=== PATIENT | male | born 1955 | race Caucasian/White ===

== ENCOUNTER 2018-05-08 09:24 | Inpatient (IN) ==
--- NOTE | 2018-04-28 08:37 | Anesthesiology Consultation ---
Date of Service April 28, 2018 Assessment & Plan (1) Encounter for pre-operative examination: Chart Review Chart Review: Acceptable Risk for Surgery and Patient seen in Pre Admission Testing Teaching & Discussion Instructed NPO after midnight before surgery, except medications with 15 cc of water. Medication instructions provided according to the PAT guidelines. History Surgery Operation Date: 05/08/18 12:45 Proposed Procedures p L5-S1 Decompression and Fusion - Watson Ortiz, Height/Weight Height: 5 ft 11 in Weight: 113 kg Allergies Allergy/AdvReac Type Severity Reaction Status Date / Time Sulfa (Sulfonamide Allergy Intermediate HIVES Verified 04/26/18 12:12 Antibiotics) boullion cubes Allergy Hives Uncoded 04/28/18 08:47 Medications Home Medications Medication Instructions Recorded Confirmed Last Taken Vitamin D 1,000 unit PO DAILY 04/26/18 04/26/18 Unknown albuterol sulfate 1 inh INHALATION QID PRN 04/26/18 04/26/18 Unknown amlodipine 10 mg PO QAM 04/26/18 04/26/18 Unknown ascorbic acid (vitamin C) [Vitamin 500 mg PO DAILY 04/26/18 04/26/18 Unknown C] aspirin [Aspir-Low] 81 mg PO HS 04/26/18 04/26/18 Unknown azelastine 1 spray INTRANASAL Q12H PRN 04/26/18 04/26/18 Unknown dicyclomine 10 mg PO DAILY PRN 04/26/18 04/26/18 Unknown gabapentin 2 tab PO TID 04/26/18 04/26/18 Unknown hydrochlorothiazide 25 mg PO QAM 04/26/18 04/26/18 Unknown lisinopril 40 mg PO QAM 04/26/18 04/26/18 Unknown multivitamin 1 tab PO HS 04/26/18 04/26/18 Unknown omeprazole 20 mg PO QAM 04/26/18 04/26/18 Unknown rosuvastatin [Crestor] 5 mg PO HS 04/26/18 04/26/18 Unknown tramadol 50 mg PO Q8H PRN 04/26/18 04/26/18 Unknown Past Medical History Medical History Asthma ASTHMATIC BRONCHITIS. LAST FLARE IN 2017. ONLY USES INHALER DURING COUGHING FLARES. Cardiac murmur None appreciated on exam. 2103 echo showed only trace MR/TR. Degenerative disc disease GERD (gastroesophageal reflux disease) Gallstones Hyperlipidemia Hypertension Osteoarthritis Peripheral neuropathy BLE Sleep apnea NO DEVICE, DID NOT TOLERATE Past Family History Family History Mother Family history of diabetes mellitus Past Surgical History Surgical History History of amputation LEFT HAND TIP INDEX FINGER History of colonoscopy History of discectomy l4-l5 History of endoscopic sinus surgery "FOR SLEEP APNEA" History of esophagogastroduodenoscopy (EGD) History of facial surgery Mechanical fall, teeth impacted into maxilla. History of tonsillectomy Past Anesthesia History No Hx of Anesthesia Complications and No Family Hx of Anesthesia Complications 2014 L4-L5 discectomy: no isssues per anesthesia record. History of PONV No Motion Sickness Screening History of Motion Sickness: No Social History Smoking Status: Former smoker Smoking cigarettes per day: QUIT 2002 Do You Dip or Chew Tobacco: No Hx Alcohol Use: No Alcohol Intake Frequency Comment: QUIT 2003 Hx Substance Use: No substance use type: does not use Exercise / Class Metabolic Activity II 4-5 Yardwork/Stairs/Walk up hill (currently limited by back pain/ radiculopathy) Review of Systems Pt denies any recent chest pain, shortness of breath, palpitations, cough, fever or URI. Physical Exam Vital Signs BP: 134/80 P: 69bpm SPO2: 96% RA T: 98.6 F R: 16 ENMT Mouth: + dentures (upper partial); no chipped teeth and no loose teeth Thyromental Distance: < 3.5 Finger Breadths (3) Mallampati Class: II Neck normal visual inspection; neck extension not limited Respiratory normal respiratory effort Auscultation: lungs clear to auscultation bilaterally Cardiovascular Rate/Rhythm: regular rate and regular rhythm Heart Sounds: no murmur Vessels: no carotid bruit Extremities: no edema Testing Electrocardiogram Date: 04/28/18 Findings: + NSR @ (64) Chest X-Ray Date: 04/28/18 Findings: + NAD Echocardiogram Date: 06/16/13 EF: 65-70% The study was technically difficult, but visualization was adequate with the administration of Definity ultrasound contrast. The left ventricle is normal in size. There is normal left ventricular wall thickness. Left ventricular systolic function is normal. The left ventricular wall motion is normal. Grade I diastolic dysfunction, (abnormal relaxation pattern). There is no significant valvular disease. Laboratory Results 04/28/18 09:09 04/28/18 09:09 Blood Type O Positive 04/28/18 09:09 Antibody Screen NEGATIVE 04/28/18 09:09 PT 9.9 Seconds (9.0-12.0) 04/28/18 09:09 INR 1.0 (0.9-1.1) 04/28/18 09:09 APTT 26.6 Seconds (21.0-31.0) 04/28/18 09:09 Urine Color Yellow 04/28/18 09:09 Urine Appearance Clear (Clear) 04/28/18 09:09 Urine pH 6.5 (4.5-7.5) 04/28/18 09:09 Ur Specific [place] 1.016 (1.000-1.030) 04/28/18 09:09 Urine Protein Negative (Negative) 04/28/18 09:09 Urine Glucose (UA) Negative (Negative) 04/28/18 09:09 Urine Ketones Negative (Negative) 04/28/18 09:09 Urine Nitrite Negative (Negative) 04/28/18 09:09 Ur Leukocyte Esterase Negative (Negative) 04/28/18 09:09
--- NOTE | 2018-04-28 08:41 | PAT Medication Instructions ---
Medication Instructions Date of Service April 28, 2018 Home Medications Vitamin D 1,000 unit PO DAILY albuterol sulfate 1 inh INHALATION QID PRN amlodipine 10 mg PO QAM ascorbic acid (vitamin C) 500 mg PO DAILY aspirin [Aspir-Low] 81 mg PO HS azelastine 1 spray INTRANASAL Q12H PRN dicyclomine 10 mg PO DAILY PRN gabapentin 2 tab PO TID hydrochlorothiazide 25 mg PO QAM lisinopril 40 mg PO QAM multivitamin 1 tab PO HS omeprazole 20 mg PO QAM rosuvastatin [Crestor] 5 mg PO HS tramadol 50 mg PO Q8H PRN DO NOT take the morning of surgery Vitamin D 1,000 unit PO DAILY ascorbic acid (vitamin C) 500 mg PO DAILY dicyclomine 10 mg PO DAILY PRN hydrochlorothiazide 25 mg PO QAM lisinopril 40 mg PO QAM Take morning of surgery With a small sip of water, OTHERWISE NOTHING TO EAT OR DRINK AFTER MIDNIGHT: albuterol sulfate 1 inh INHALATION QID PRN (if needed, and bring with you to the hospital) amlodipine 10 mg PO QAM azelastine 1 spray INTRANASAL Q12H PRN (if needed) gabapentin 2 tab PO TID omeprazole 20 mg PO QAM tramadol 50 mg PO Q8H PRN (if needed, may be taken up to four hours before surgery) Take evening before surgery aspirin [Aspir-Low] 81 mg PO HS albuterol sulfate 1 inh INHALATION QID PRN (if needed) azelastine 1 spray INTRANASAL Q12H PRN (if needed) dicyclomine 10 mg PO DAILY PRN (if needed) gabapentin 2 tab PO TID multivitamin 1 tab PO HS rosuvastatin [Crestor] 5 mg PO HS tramadol 50 mg PO Q8H PRN (if needed) Other Notes If you have any questions please call us at [phone] or [phone] or [phone] or [phone]
--- NOTE | 2018-04-28 09:46 | XRay Report ---
TWO VIEW CHEST CLINICAL HISTORY: Preoperative examination. FINDINGS: PA and lateral chest radiographs are compared to study dated 06/16/2013. The cardiomediastina l silhouette is unremarkable. The lungs and pleural spaces are clear. There is no pneumothorax. The bony thorax appears intact. IMPRESSION: No active disease in the chest. Electronically signed by: Karthik Kennedy M.D. 04/28/2018 9:45 AM
[2018-04-28 10:14] LABS: Basophils # (auto) 0.04 K/uL (0-0.2); Basophils % (auto) 0.7 %; Eosinophils % (auto) 1.8 %; Hematocrit (blood only) 43.6 % (42-52); Hemoglobin 14.9 g/dL (14.0-18.0); Immature Granulocytes # (auto) 0.02 K/uL (0.00-0.02); Immature Granulocytes % (auto) 0.4 %; Lymphocytes # (auto) 2.05 K/uL (1.2-3.4); Lymphocytes % (auto) 36.2 %; Mean Corpuscular Hgb Conc 34.2 g/dL (32-36); Mean Corpuscular Volume 83.8 fL (80-100); Mean Platelet Volume 9.5 fL (7.4-10.4); Monocytes # (auto) 0.52 K/uL (0.11-0.59); Monocytes % (auto) 9.2 %; Neutrophils # (auto) 2.93 K/uL (1.4-6.5); Neutrophils % (auto) 51.7 %; Platelet Count 260 K/uL (130-400); RDW Coefficient of Variation 13.1 % (11.5-14.5); RDW Standard Deviation 39.5 fL (36.4-46.3); White Blood Count 5.66 K/uL (4.8-10.8)
[2018-04-28 10:22] LABS: Appearance Urine Clear (Clear); Bilirubin Urine Negative (Negative); Color Urine Yellow; Glucose Urine UA Negative (Negative); Ketones Urine Negative (Negative); Leukocyte Esterase Urine Negative (Negative); Nitrite Urine Negative (Negative); Protein Urine Negative (Negative); Specific Gravity Urine 1.016 (1.000-1.030); Urobilinogen Urine Negative (Negative); pH Urine 6.5 (4.5-7.5)
[2018-04-28 10:23] LABS: BUN Creatinine Ratio 18.4 (10-20); Calcium 9.6 mg/dl (8.5-10.1); Creatinine Clr Calc Pharmacy 103.5 ml/min; Est GFR (African American) 97.9; Est GFR (Non-African American) 84.5; Potassium 4.3 mmol/L (3.5-5.1)
[2018-04-28 10:29] LABS: Partial Thromboplastin Time 26.6 Seconds (21.0-31.0); Prothrombin Time 9.9 Seconds (9.0-12.0)
[~2018-05-08 09:24] MED LIST: ACETAMINOPHEN 500 MG TAB PO SCH; CEFAZOLIN 2000MG 2,000 MG/15 ML SYR IV SCH; CeleBREX 200 MG CAP PO SCH; GABAPENTIN 300 MG x 2 PO SCH; LR 15ML/HR IV SCH
[2018-05-08] MEDS ORDERED: HYDROmorphone INJ 2 MG/ML SYR/VIAL ONE (09:39)
[2018-05-08] MEDS ORDERED: MIDAZOLAM HCL 1 MG/ML 2ML VIAL ONE (09:39)
[2018-05-08] MEDS ORDERED: fentaNYL citrate 100 MCG/2 ML VIAL ONE (09:39)
[2018-05-08] MEDS ORDERED: ONDANSETRON INJ 2 MG/ML 2 ML VIAL ONE (10:37)
[2018-05-08] MEDS ORDERED: LIDOCAINE HCL 2% 2 ML VIAL/AMP(20MG/ML) INFIL ONE (10:37)
[2018-05-08] MEDS ORDERED: DEXAMETHASONE SOD INJ 4 MG/ML VIAL ONE (10:37)
[2018-05-08] MEDS ORDERED: GLYCOPYRROLATE 0.2 MG/ML VIAL ONE (10:37)
[2018-05-08] MEDS ORDERED: ROCURONIUM BROMIDE 10 MG/ML 5 ML VIAL ONE (10:37)
[2018-05-08] MEDS ORDERED: NEOSTIGMINE METHYLSULFATE 1 MG/ML 10ML VIAL ONE (10:37)
[2018-05-08] MEDS ORDERED: PROPOFOL IV EMULSION 10 MG/ML 20 ML VIAL IV ONE (10:37)
[2018-05-08] MEDS ORDERED: ONDANSETRON INJ 2 MG/ML 2 ML VIAL IV PRN ×2 (10:59→15:31)
[2018-05-08] MEDS ORDERED: ePHEDrine sulfate 50 MG/ML AMP IV PRN (10:59)
[2018-05-08] MEDS ORDERED: ATROPINE SULFATE 0.1 MG/ML 5ML SYR IV PRN (10:59)
[2018-05-08] MEDS ORDERED: HYDROmorphone INJ 2 MG/ML SYR/VIAL IV PRN (10:59)
[2018-05-08] MEDS ORDERED: PROMETHAZINE HCL 6.25 MG in SODIUM CHLORIDE 0.9% 50 ML IV PRN (10:59)
[2018-05-08] MEDS ORDERED: ESMOLOL HCL INJ 10 MG/ML 10ML VIAL IV ONE (11:46)
--- NOTE | 2018-05-08 11:50 | History & Physical Bridge Note ---
Date of Service May 08, 2018 History & Physical Bridge Note I have examined the patient, reviewed the History & Physical and in the interval since the performance of the History & Physical I have noted the following changes of clinical significance: no changes noted
--- NOTE | 2018-05-08 11:51 | History & Physical Report ---
Date of Service May 08, 2018 Assessment & Plan (1) Neurogenic claudication due to lumbar spinal stenosis: Decompression and fusion L5-S1 Present on Admission?: Yes History of Present Illness Chief Complaint: Back and leg pain Primary Care Provider: Denzel Loomis This is a 62-year-old male that presents with chronic persistent back and leg pain. After failing extensive course of nonoperative care is here for surgical intervention. Allergies Allergy/AdvReac Type Severity Reaction Status Date / Time Sulfa (Sulfonamide Allergy Intermediate HIVES Verified 05/08/18 09:48 Antibiotics) boullion cubes Allergy Hives Uncoded 05/08/18 09:48 Home Medications Home Medications Medication Instructions Recorded Confirmed Type Vitamin D 1,000 unit PO DAILY 04/26/18 05/08/18 History albuterol sulfate 1 inh INHALATION QID PRN 04/26/18 05/08/18 History amlodipine 10 mg PO QAM 04/26/18 05/08/18 History ascorbic acid (vitamin C) [Vitamin 500 mg PO DAILY 04/26/18 05/08/18 History C] aspirin [Aspir-Low] 81 mg PO HS 04/26/18 05/08/18 History azelastine 1 spray INTRANASAL Q12H PRN 04/26/18 05/08/18 History dicyclomine 10 mg PO DAILY PRN 04/26/18 05/08/18 History gabapentin 2 tab PO TID 04/26/18 05/08/18 History hydrochlorothiazide 25 mg PO QAM 04/26/18 05/08/18 History lisinopril 40 mg PO QAM 04/26/18 05/08/18 History multivitamin 1 tab PO HS 04/26/18 05/08/18 History omeprazole 20 mg PO QAM 04/26/18 05/08/18 History rosuvastatin [Crestor] 5 mg PO HS 04/26/18 05/08/18 History tramadol 50 mg PO Q8H PRN 04/26/18 05/08/18 History Past Med/Surg History Medical History Asthma ASTHMATIC BRONCHITIS. LAST FLARE IN 2017. ONLY USES INHALER DURING COUGHING FLARES. Cardiac murmur None appreciated on exam. 2103 echo showed only trace MR/TR. Degenerative disc disease GERD (gastroesophageal reflux disease) Gallstones Hyperlipidemia Hypertension Osteoarthritis Peripheral neuropathy BLE Sleep apnea NO DEVICE, DID NOT TOLERATE Surgical History History of amputation LEFT HAND TIP INDEX FINGER History of colonoscopy History of discectomy l4-l5 History of endoscopic sinus surgery "FOR SLEEP APNEA" History of esophagogastroduodenoscopy (EGD) History of facial surgery Mechanical fall, teeth impacted into maxilla. History of tonsillectomy Family History Mother Family history of diabetes mellitus Social History Current Living Situation: Spouse Other Information That Helps Us Care for You: No Feels Safe at Home: Yes Safety Concerns: Feels Safe At This Time Smoking Status: Former smoker Cigarettes per Day: QUIT 2003 Do You Dip or Chew Tobacco: No Hx Alcohol Use: No Hx Substance Use: No Beliefs That Will Affect Care: None Preferred Language: [place] Communication Ability: Effective Nursery Teacher Required: No Physical Exam 2 Vital Signs (Past 24 Hours): Last Vital Signs Temp 37.2 C 05/08/18 09:56 Pulse 76 05/08/18 09:56 Resp 18 05/08/18 09:56 BP 168/79 H 05/08/18 09:56 Pulse Ox 95 05/08/18 09:56 Results & Data Medications Administered Acetaminophen (Tylenol) 1,000 mg PO PREOP SHANI Stop: 05/08/18 18:00 Last Admin: 05/08/18 10:29 Dose: 1,000 mg Celecoxib (Celebrex) 200 mg PO PREOP SHANI Stop: 05/08/18 18:00 Last Admin: 05/08/18 10:29 Dose: 200 mg Gabapentin (Neurontin) 600 mg PO PREOP SHANI Stop: 05/08/18 18:00 Last Admin: 05/08/18 10:33 Dose: Not Given Lactated Ringer's (Lr) 1,000 mls @ 15 mls/hr IV .Q24H SHANI Stop: 05/09/18 05:59 Last Admin: 05/08/18 10:18 Dose: 15 mls/hr
[2018-05-08] MEDS ORDERED: BUPIVACAINE/EPINEPHRINE 0.5% MPF 1:200,000 30 ML VIAL ONE (11:56)
[2018-05-08] MEDS ORDERED: BACITRACIN INJ 50,000 UNIT VIAL ONE (11:56)
[2018-05-08] MEDS ORDERED: FLOSEAL HEMOSTATIC MATRIX 10ML TOP ONE (13:31)
--- NOTE | 2018-05-08 14:08 | Operative Report ---
Post Operative Report Date of Surgery May 08, 2018 Pre & Post Diagnosis Operation Date: 05/08/18 11:25 Pre-Op Diagnosis: Lumbar spinal stenosis with radiculopathy Post-Op Diagnosis: Same Procedure Operation Date: 05/08/18 11:25 Actual Procedures #1 revision decompression medial facetectomy foraminotomy L5-S1. 2 posterior spinal fusion L5-S1. #3 please posterior his mentation L5-S1. #4 interbody fusion L5-S1. #5 placement of titanium 11 x 26 mm cage L5-S1. #6 placement of local autograft in the posterior gutters per #7 placement infuse collagen sponge , mass graft and posterior gutters and ostomy up in interbody space. Surgeon Watson Ortiz, Director Community Organization None Estimated Blood Loss 100 Findings Consistent with Post-Op Diagnosis Specimens None Description of Procedure Patient was met with preoperatively case discussed all questions addressed. After informed consent obtained patient was taken to the operative suite underwent intubation and placed in a prone position the Emery table on top of the Johnny frame. All bony prominences well-padded eyes inspected to ensure no external pressure placed upon this point the lumbar spine was prepped and draped in normal sterile fashion. Sharp dissection with the assistance of Bovie cautery was performed down to and exposing the remaining lamina and transverse process of L5 and sacral ala bilaterally. From a caudal to cephalad fashion revision complete laminectomy of L5 was performed including medial facetectomies and foraminotomies addressing severe stenosis. Pedicle screws were then placed in L5 and S1 levels bilaterally with assistance of fluoroscopy the process lokesh placed. The transforaminal portion right complete discectomy was performed in place coated to subcortical bleeding bone and a 11 x 26 mm titanium cage filled with ostium bone graft tapped in position. Rods were then locked in final position bilaterally. The transverse process of L5 and sacral ala bur to subcortical bleeding bone. Infuse collagen sponge mass graft local autograft placed in the posterior gutters. 15 round ROBIN drain inserted. Incision then closed with 1 Vicryl fascia 2-0 Vicryl subtenons seen for Monocryl for Fransen closure Steri-Strip sterile dressings placed. Patient will continue to PACU stable condition. I attest to the content of the Intraoperative Record and any orders documented therein. Any exceptions are noted below.
--- NOTE | 2018-05-08 14:17 | Fluoroscopy Report ---
FL lumbar spine 2-3V CLINICAL HISTORY: L5-S1 DECOMPRESSION AND FUSION COMPARISON STUDY: Lumbar spine MRI June 15, 2013. FLUOROSCOPY TIME: 19 seconds. FLUOROSCOPIC IMAGES: 2 FINDINGS: These images demonstrate an L5-S1 discectomy with interbody spacer placement. There is a po sterior decompression with bilateral pedicle screws at the L5 and S1 levels. IMPRESSION: Fluoroscopic images demonstrating an L5-S1 discectomy and bilateral pedicle screw fusion /decompression. Electronically signed by: Tc Swanson M.D. 05/08/2018 2:15 PM
[2018-05-08] MEDS: fentaNYL citrate 100 MCG/2 ML VIAL IV PRN ×4 (14:22→14:37)
--- NOTE | 2018-05-08 14:25 | Anesthesiology Progress Note ---
Date of Service May 08, 2018 Anesthesia Post Procedure Vital Signs Vital Signs: Temp Pulse Resp BP Pulse Ox 05/08/18 09:56 37.2 C 76 18 168/79 H 95 Pain Intensity Right Lower Back: Pain Intensity: 1 Notes Mental Status: alert / awake / arousable Patient Amnestic to Procedure: Yes Nausea / Vomiting: adequately controlled Pain: adequately controlled Airway Patency, RR, SpO2: stable & adequate BP & HR: stable & adequate Hydration State: stable & adequate Anesthetic Complications: no major complications apparent
[2018-05-08] MEDS ORDERED: DO NOT ADMINISTER PNEUMOCOCCAL VACCINE PRN (15:31)
[2018-05-08] MEDS ORDERED: HYDROmorphone INJ 1 MG/ML SYRINGE IV PRN (15:31)
[2018-05-08] MEDS ORDERED: SOD PHOSPHATE/SOD BIPHOSPHATE ENEMA 132 ML BTL PR PRN (15:31)
[2018-05-08] MEDS ORDERED: ALUMINUM/MAGNESIUM SUSP 30 ML UDC PO PRN (15:31)
[2018-05-08] MEDS ORDERED: ACETAMINOPHEN 500 MG TAB PO PRN (15:31)
[2018-05-08] MEDS ORDERED: FAMOTIDINE 20 MG TAB PO PRN (15:31)
[2018-05-08] MEDS ORDERED: ACETAMINOPHEN 1,000 MG/100 ML VIAL IV PRN (15:31)
[2018-05-08] MEDS ORDERED: DO NOT ADMINISTER FLU VACCINE PRN (15:31)
[2018-05-08] MEDS ORDERED: LORazepam 0.5 MG/1 ML VIAL IV PRN (15:31)
[2018-05-08] MEDS ORDERED: PROMETHAZINE HCL 12.5 MG in SODIUM CHLORIDE 0.9% 50 ML IV PRN (15:31)
[2018-05-08] MEDS ORDERED: BISACODYL 10 MG SUPP PR PRN (15:31)
[2018-05-08] MEDS ORDERED: OXYCODONE HCL IR 5 MG TAB (IMMEDIATE RELEASE) PO PRN (15:31)
[2018-05-08] MEDS ORDERED: MAGNESIUM HYDROXIDE SUSP 30 ML UDC PO PRN (15:31)
[2018-05-08] MEDS ORDERED: TRAMADOL HCL 50 MG TABLET PO PRN (15:31)
[2018-05-08] MEDS ORDERED: LORazepam 0.5 MG TAB PO PRN (15:31)
[2018-05-08] MEDS ORDERED: METOCLOPRAMIDE HCL INJ 5 MG/ML 2 ML VIAL IV PRN (15:31)
[2018-05-08] MEDS ORDERED: ONDANSETRON 4 MG TAB PO PRN (16:00)
[2018-05-08] MEDS ORDERED: DICYCLOMINE HCL 10 MG CAP PO PRN (16:00)
[2018-05-08] MEDS ORDERED: ALBUTEROL HFA 8 GM INHALER INH PRN (16:00)
[2018-05-08] MEDS: LACTATED RINGER'S 1,000 ML IV SCH ×2 (16:23→22:35)
[2018-05-08] MEDS: KETOROLAC 30 MG/ML VIAL IV SCH ×2 (16:29→20:47)
[2018-05-08] MEDS: ROSUVASTATIN CALCIUM 5 MG TAB PO SCH (20:47)
[2018-05-08] MEDS: CEFAZOLIN 2000MG 2,000 MG/15 ML SYR IV SCH (20:47)
[2018-05-08] MEDS: DOCUSATE SODIUM/SENNA 50/8.6MG TAB PO SCH (20:47)
[2018-05-08] MEDS: ASPIRIN 81 MG ECTAB PO SCH (20:47)
[2018-05-08] MEDS: MULTIVITAMIN TAB PO SCH (20:47)
[2018-05-08] MEDS: GABAPENTIN 600 MG TAB PO SCH (20:47)
[2018-05-08] MEDS: TRAMADOL HCL 50 MG TABLET PO PRN (22:38)
[2018-05-09] MEDS: CEFAZOLIN 2000MG 2,000 MG/15 ML SYR IV SCH (03:49)
[2018-05-09] MEDS: KETOROLAC 30 MG/ML VIAL IV SCH ×2 (03:49→09:57)
[2018-05-09] MEDS: POLYETHYLENE (MIRALAX) 17 GM PACK PO SCH ×4 (05:24→23:18)
[2018-05-09] MEDS: LACTATED RINGER'S 1,000 ML IV SCH (06:57)
[2018-05-09 07:25] LABS: Basophils # (auto) 0.01 K/uL (0-0.2); Basophils % (auto) 0.1 %; Hematocrit (blood only) 37.4 % (42-52); Hemoglobin 12.6 g/dL (14.0-18.0); Immature Granulocytes # (auto) 0.04 K/uL (0.00-0.02); Immature Granulocytes % (auto) 0.4 %; Lymphocytes # (auto) 1.16 K/uL (1.2-3.4); Lymphocytes % (auto) 10.3 %; Mean Corpuscular Hgb Conc 33.7 g/dL (32-36); Mean Corpuscular Volume 83.3 fL (80-100); Mean Platelet Volume 9.7 fL (7.4-10.4); Monocytes # (auto) 0.72 K/uL (0.11-0.59); Monocytes % (auto) 6.4 %; Neutrophils # (auto) 9.36 K/uL (1.4-6.5); Neutrophils % (auto) 82.8 %; Platelet Count 241 K/uL (130-400); RDW Standard Deviation 39.2 fL (36.4-46.3); Red Blood Count 4.49 M/uL (4.7-6.1); White Blood Count 11.29 K/uL (4.8-10.8)
[2018-05-09 07:59] LABS: BUN Creatinine Ratio 16.8 (10-20); Calcium 8.6 mg/dl (8.5-10.1); Creatinine Clr Calc Pharmacy 97.5 ml/min; Est GFR (African American) 92.2; Est GFR (Non-African American) 79.5; Potassium 4.2 mmol/L (3.5-5.1)
[2018-05-09] MEDS: LISINOPRIL 40 MG TAB PO SCH (08:18)
[2018-05-09] MEDS: GABAPENTIN 600 MG TAB PO SCH ×3 (08:18→20:31)
[2018-05-09] MEDS: PANTOprazole 40 MG TAB PO SCH (08:18)
[2018-05-09] MEDS: CHOLECALCIFEROL 1,000 UNITS TAB PO SCH (08:18)
[2018-05-09] MEDS: AMLODIPINE BESYLATE 5 MG TAB PO SCH (08:19)
[2018-05-09] MEDS: ASCORBIC ACID 500 MG TAB PO SCH (08:19)
[2018-05-09] MEDS: hydroCHLOROthiazide 25 MG TAB PO SCH (08:19)
--- NOTE | 2018-05-09 12:08 | Orthopedic Progress Note ---
Date of Service May 09, 2018 Assessment & Plan (1) Neurogenic claudication due to lumbar spinal stenosis: Continue physical therapy today monitor his ROBIN output anticipate discharge home tomorrow the next day. Present on Admission?: Yes Physical Exam 2 Vital Signs (Past 24 Hours): Last Vital Signs Temp 36.7 C 05/09/18 11:08 Pulse 73 05/09/18 11:08 Resp 18 05/09/18 11:08 BP 131/65 05/09/18 11:08 Pulse Ox 95 05/09/18 11:08 Physical Exam: Patient is good strength testing appears comfortable.
[2018-05-09] MEDS: ASPIRIN 81 MG ECTAB PO SCH (20:31)
[2018-05-09] MEDS: DOCUSATE SODIUM/SENNA 50/8.6MG TAB PO SCH (20:31)
[2018-05-09] MEDS: MULTIVITAMIN TAB PO SCH (20:31)
[2018-05-09] MEDS: ROSUVASTATIN CALCIUM 5 MG TAB PO SCH (20:31)
[2018-05-10] MEDS: POLYETHYLENE (MIRALAX) 17 GM PACK PO SCH ×2 (05:53→09:50)
[2018-05-10] MEDS: TRAMADOL HCL 50 MG TABLET PO PRN (05:54)
[2018-05-10] MEDS: GABAPENTIN 600 MG TAB PO SCH ×2 (05:54→13:43)
[2018-05-10] MEDS: LISINOPRIL 40 MG TAB PO SCH (07:26)
[2018-05-10] MEDS: PANTOprazole 40 MG TAB PO SCH (07:26)
[2018-05-10] MEDS: hydroCHLOROthiazide 25 MG TAB PO SCH (07:27)
[2018-05-10] MEDS: CHOLECALCIFEROL 1,000 UNITS TAB PO SCH (07:27)
[2018-05-10] MEDS: ASCORBIC ACID 500 MG TAB PO SCH (07:28)
[2018-05-10] MEDS: AMLODIPINE BESYLATE 5 MG TAB PO SCH (07:28)
--- NOTE | 2018-05-10 08:21 | Anesthesiology Progress Note ---
Date of Service May 10, 2018 Anesthesia Post Procedure Vital Signs Vital Signs: Temp Pulse Pulse Pulse Resp BP Pulse Ox 05/10/18 08:06 37.0 C 76 16 132/82 98 05/10/18 06:29 36.7 C 76 16 126/76 98 05/09/18 22:55 36.9 C 66 18 109/66 93 05/09/18 15:12 36.6 C 68 18 118/70 97 05/09/18 11:08 36.7 C 73 18 131/65 95 05/09/18 10:43 96 Pain Intensity Right Lower Back: Pain Intensity: 1 Back: Pain Intensity: 3 Notes Mental Status: alert / awake / arousable and participated in evaluation Patient Amnestic to Procedure: Yes Nausea / Vomiting: adequately controlled Pain: adequately controlled Airway Patency, RR, SpO2: stable & adequate BP & HR: stable & adequate Hydration State: stable & adequate Anesthetic Complications: no major complications apparent and Pt Satisfied with anesthetic care
--- NOTE | 2018-05-10 13:01 | Discharge Summary ---
Date of Service May 10, 2018 Admission HPI Per Admitting Provider This is a 62-year-old male that presents with chronic persistent back and leg pain. After failing extensive course of nonoperative care is here for surgical intervention. Principal Diagnosis Spinal stenosis with neurogenic claudication Discharge Data Allergies Allergy/AdvReac Type Severity Reaction Status Date / Time Sulfa (Sulfonamide Allergy Intermediate HIVES Verified 05/08/18 09:48 Antibiotics) boullion cubes Allergy Hives Uncoded 05/08/18 09:48 Consultations 05/08/18 15:31 Consult Case Management - Discharge Planning Routine Procedures Performed Operation Date: 05/08/18 11:25 Actual Procedures p L5-S1 Decompression and Fusion(Not Applicable) - Watson Ortiz DO Ordered Studies 05/08/18 11:25 FL fluoroscopy >1hr Routine [place] lumbar spine 2-3V Routine Hospital Course (1) Neurogenic claudication due to lumbar spinal stenosis: Patient underwent lumbar decompression fusion tolerated as well as taken to the orthopedic floor postoperative. Postop day #1 he was up and ambulating well. Progressive postop day #2. ROBIN drain decreasing appropriately. Subsequently discharged home. Discharge orders and instructions found in the chart for further review. Total Time Total Time Spent Total Time Spent (In Minutes): Not applicable Discharge Plan Discharge Items Patient Disposition: Home - Self-Care Reason For Visit: Other Biomechanical Lesions of Lumbar Region Discharge Diagnosis: lumbar stenosis Discharge Goals: Improve function Activity: Per 'Additional Instructions' section Non-emergency contact: Primary Care Provider Call non-emergency contact if: you have any medication questions Follow-up/Referrals: Denzel Loomis [Primary Care Provider] - Diet: Regular Addtl Provider Instructions: ACTIVITY RECOMMENDATIONS: SELF CARE INSTRUCTIONS AFTER THORACIC/LUMBAR FUSIONS 1. You may walk to your tolerance. It is good exercise for your legs and back. Expect some back and intermittent leg aches and pains. 2. You may perform "counter-top" level activities (make a sandwich, maurilio with a project, etc.). 3. No bending or lifting of more than 10 pounds or back twisting of any nature (roll like a log when turning in bed). 4. You may ride in a car for 20-30 minutes at a time. No driving until after your first visit with your doctor. 5. Frequent changes of position and restricting sitting to 30 minutes at a time will help limit the amount of back spasms and stiffness you may experience. 6. You may discontinue the use of ambulatory aids (cane, crutches, etc.) once your strength and confidence allow. 7. You may mechanical energy engineer the shower and let water strike your incision when you arrive home at least once daily. Do not take a tub bath, sit in a hot tub or go into a swimming pool until after your first recheck in the office. SPECIAL CARE INSTRUCTIONS: VERY IMPORTANT TO READ AND REVIEW A. Your surgical incision has been closed with a cosmetic suture under the skin that will dissolve in about 6 weeks. In 14 days, you can use a pair of clean scissors and cut the suture that is left outside of the skin at the ends of your incision. 1. The small skin tapes can be removed 7 days after surgery if they have not fallen off by that point. 2. You may keep the wound open to air as much as possible to promote healing after post-op day number 5 unless told otherwise by your doctor. 3. If you think the wound looks like it is becoming infected (redness or worsening drainage) and/or you are experiencing fever, chill or worsening back pain and muscle spasms, contact the office so that we may evaluate you as soon as possible. B. Complications are uncommon, but please contact us if you have any signs or symptoms of: 1. wound infection (fever higher than 102.5 degrees F, redness, separation of wound, drainage, or increasing pain from the incision) 2. blood clots in legs (pain, swelling, redness and warmth in legs) 3. urinary tract infection (fever higher than 102.5 degrees F, burning upon urination or increased frequency of urination) 4. nerve problems (inability to walk on your toes or heels, numbness, loss of bowel or bladder control) 5. any other symptoms that concern you C. Please call the office at if you have any concerns or questions about your operation or recovery. D. No smoking! Smoking drastically decreases the chance of a solid fusion. E. Do not take any anti-inflammatory medications (Indocin, Advil, Motrin, Aspirin, Naprosyn, etc.) as these may inhibit the chance of a solid fusion. Tylenol is okay to take for pain. MANAGING PAIN AFTER SPINAL SURGERY 1. Narcotic medication is intended for short-term use and will be provided for surgical pain. Surgical pain usually lasts for a period of 4-6 weeks. Narcotic medication includes Percocet, Vicodin, Darvocet, Tylenol #3 or Lortab. 2. Longer-term pain is more appropriately treated with non-narcotic medication such as Tylenol ES. 3. Muscle spasm is not appropriately treated with narcotics. Muscle relaxers such as Soma, Flexeril or Skelaxin can be used along with Tylenol ES. 4. Remember that we all live with some "aches and pains". This is not unusual or uncommon after an injury or as we get older. a. Back pain is expected and may include muscle spasms for 4 to 6 weeks after surgery. The pain should gradually improve. If the pain worsens for no apparent reason, please contact the office. b. Intermittent leg pain may also be experienced and should not be concerned about unless it worsens for no apparent reason. If so, please contact the office. 5. We will provide appropriate medication within the normal guidelines of their prescribed use. We will also be very cautious and aware of potential abuse and extended duration of patients' medication needs. a. Pain medications are for your comfort and to assist with sleep and rest so that the tissue can heal. They are not provided in order to return to normal activity and should not be used through the day. To do so or worsening pain at night can result from ongoing tissue damage and development of tolerance to the prescribed medicine. 6. Please allow 2-3 days to process refills. Prescriptions will not be mailed but must be picked up at the office. FOLLOW UP VISIT: Keep your scheduled follow-up appointment. Any questions, please call the office at . Prescriptions: New tramadol 50 mg Tablet 50 mg PO Q4H PRN (Reason: Pain, Moderate) Qty: 30 RF: 0 oxycodone 5 mg Tablet 5 mg PO Q4H PRN (Reason: Pain, Severe) Qty: 30 RF: 0 Continue multivitamin Tablet 1 tab PO HS RF: 0 aspirin [Aspir-Low] 81 mg Tablet,Delayed Release (Dr/Ec) 81 mg PO HS RF: 0 tramadol 50 mg Tablet 50 mg PO Q8H PRN (Reason: Pain) RF: 0 ascorbic acid (vitamin C) [Vitamin C] 500 mg Tablet 500 mg PO DAILY RF: 0 amlodipine 10 mg Tablet 10 mg PO QAM RF: 0 gabapentin 300 mg Capsule 2 tab PO TID RF: 0 hydrochlorothiazide 25 mg Tablet 25 mg PO QAM RF: 0 lisinopril 40 mg Tablet 40 mg PO QAM RF: 0 dicyclomine 10 mg Capsule 10 mg PO DAILY PRN (Reason: NEEDED) RF: 0 rosuvastatin [Crestor] 5 mg Tablet 5 mg PO HS RF: 0 omeprazole 20 mg Tablet,Delayed Release (Dr/Ec) 20 mg PO QAM RF: 0 azelastine 0.15 % (205.5 mcg) [place],Non-Aerosol 1 spray INTRANASAL Q12H PRN (Reason: NEEDED) RF: 0 albuterol sulfate 90 mcg/actuation Aerosol Powdr Breath Activated 1 inh INHALATION QID PRN (Reason: SHORT OF BREATH) RF: 0 Vitamin D 1,000 unit PO DAILY RF: 0 Visit Report Forms: [facility] Stand-Alone Forms: [facility] Discharge Orders: Discharge Order (Routine); Ordered 05/10/18 Ordered By: Watson Ortiz Admission Data Admit Date/Time: 05/08/18 14:14 Attending Provider: Watson Ortiz Admit Provider: Watson Ortiz Primary Care Provider: Denzel Loomis Service: Surgical Services
== END 2018-05-10 14:50 | disposition home or self-care (01) ==
LOC: ASU 09:24 → 3W 14:14